=== PATIENT | male | born 1950 | race Two or more races ===

== ENCOUNTER 2021-02-12 22:44 | Emergency (ER) | payer OTHER ==
[~2021-02-12] VITALS: Ht 170.2 cm; Wt 77.1 kg
[~2021-02-12 22:44] MED LIST: ADULT ASPIRIN81 MG; MIRALAX17 GM PO
[2021-02-12] MEDS ORDERED: ATORVASTATIN CA10 MG (23:20)
[2021-02-12] MEDS ORDERED: ZESTRIL5 MG (23:21)
[2021-02-13] MEDS ORDERED: PEPCID20 MG PO (02:34)
[2021-02-13] MEDS ORDERED: ACETAMINOPHEN650 M2 PO (02:34)
== END 2021-02-13 02:58 | disposition home or self-care (01) ==
LOC: ER 22:44
DX: T18.128A Food in esophagus causing other injury, initial encounter (principal); R06.02 Shortness of breath; X58.XXXA Exposure to other specified factors, initial encounter; Y93.89 Activity, other specified; Y92.89 Other specified places as the place of occurrence of the external cause; Y99.8 Other external cause status